=== PATIENT | male | born 1995 | race Native Hawaiian/Other Pacific Islander ===

== ENCOUNTER 2019-01-25 14:46 | Emergency (ER) | payer OTHER ==
--- NOTE | 2019-01-25 17:43 | ED PDOC ---
HPI: Headache Time Seen by Provider: 01/25/19 15:43 Chief Complaint (Nursing): Headache Chief Complaint (Provider): nasal congestion, MICHEL Additional Complaint(s): 23 y/o M with no significant PMH who presents with mild MICHEL and nasal congestion for the past 2 days. Pt states that he has had nasal congestion with yellow/greenish nasal drainage as well as MICHEL for the past 2 days. He had one episode of chills and began taking cephalosporin antibiotic that he had from [place], 1st dose this morning. He has not taken any Tylenol or Ibuprofen. Denies fever, sore throat, body aches, cough. Further denies dizziness, visual/speech/gait disturbance. [employer] Technician: [id number] Past Medical History Reviewed: Historical Data, Nursing Documentation, Vital Signs Vital Signs: Last Vital Signs Temp 99.3 F 01/25/19 14:49 Pulse 95 H 01/25/19 14:49 Resp 16 01/25/19 14:49 BP 124/84 01/25/19 14:49 Pulse Ox 99 01/25/19 14:49 - Medical History PMH: No Chronic Diseases - Family History Family History: States: Unknown Family Hx - Home Medications Home Medications: Ambulatory Orders Medication Instructions Recorded Fluticasone Nasal [Flonase] 1 spr NS BID #1 spr 01/25/19 - Allergies Allergies/Adverse Reactions: Allergies Allergy/AdvReac Type Severity Reaction Status Date / Time No Known Allergies Allergy Verified 01/25/19 14:50 Review of Systems Constitutional: Positive for: Chills. Negative for: Fever, Sweats ENT: Positive for: Nose Discharge, Nose Congestion. Negative for: Throat Pain Cardiovascular: Negative for: Chest Pain Respiratory: Negative for: Cough Gastrointestinal: Negative for: Nausea, Vomiting Physical Exam - Reviewed Nursing Documentation Reviewed: Yes Vital Signs Reviewed: Yes - Physical Exam Appears: Positive for: Well Skin: Positive for: Normal Color Eye Exam: Positive for: Normal appearance ENT: Positive for: TM Is/Are (normal B/L), Nasal Congestion, Other (swollen nasal turbinates B/L). Negative for: Pharyngeal Erythema, Tonsillar Exudate Cardiovascular/Chest: Positive for: Regular Rate, Rhythm Respiratory: Positive for: Normal Breath Sounds Neurological/Psych: Positive for: Awake, Alert, Oriented - ECG O2 Sat by Pulse Oximetry: 99 Medical Decision Making Medical Decision Making: Patient advised to use nasal decongestants and Tylenol/Ibuprofen for headache. Return instructions provided. Disposition - Clinical Impression Clinical Impression: Sinus headache - Patient ED Disposition Is Patient to be Admitted: No Counseled Patient/Family Regarding: Diagnosis, Need For Followup, Rx Given - Disposition Disposition: Routine/Home Disposition Time: 17:45 Condition: STABLE
[2019-01-25 18:22] VITALS: BP 113/71; PULSE 87; RESP 18; TEMP 99.2; O2SAT 100
== END 2019-01-25 18:19 | disposition home or self-care (01) ==
LOC: H.ER 14:46
DX: R51 Headache (principal)